=== PATIENT | male | born 1950 | race Caucasian/White ===

== ENCOUNTER → 2018-01-20 | Outpatient (CLI) | payer MEDICARE | END | disposition home or self-care (01) | LOC: CFH 07:49 | PROVIDERS: ATTEND Internal Medicine Cardiovascular Disease | DX: I21.19 ST elevation (STEMI) myocardial infarction involving other coronary artery of inferior wall (principal); I25.9 Chronic ischemic heart disease, unspecified; I10 Essential (primary) hypertension; I49.3 Ventricular premature depolarization | CPT/HCPCS: 78452; 93017; A9502 ==

== ENCOUNTER 2018-02-07 09:48 | Day surgery (SDC) | payer MEDICARE ==
[~2018-02-07] VITALS: Ht 175.3 cm; Wt 111.4 kg
[2018-02-07 10:02] VITALS: BP 128/74
[2018-02-07] MEDS ORDERED: GLUC1TAB21 PO (10:10)
[2018-02-07] MEDS ORDERED: LOSA1TAB22 PO (10:10)
[2018-02-07] MEDS ORDERED: MILK140C PO (10:10)
[2018-02-07] MEDS ORDERED: ASPI-650 PO (10:10)
[2018-02-07] MEDS ORDERED: NIAC500T PO (10:10)
[2018-02-07] MEDS ORDERED: OMEG1CAP34 PO (10:10)
[2018-02-07] MEDS ORDERED: ATOR20TA9 PO (10:10)
[2018-02-07] MEDS ORDERED: MULT-751 PO (10:10)
[2018-02-07] MEDS ORDERED: UBID100C41 PO (10:10)
[2018-02-07 10:34] LABS: BASOPHILS # (AUTO) 0.02 x10^3/uL (0-0.1); BASOPHILS % (AUTO) 0 % (0-1); EOSINOPHILS # (AUTO) 0.12 x10^3/uL (0-0.4); EOSINOPHILS % (AUTO) 3 % (1-7); LYMPHOCYTES # (AUTO) 1.26 x10^3/uL (1-3.4); LYMPHOCYTES % (AUTO) 27 % (22-44); MD NO; MEAN CORPUSCULAR HEMOGLOBIN 29.8 pg (27.5-34.5); MEAN CORPUSCULAR HGB CONC 34.4 g/dL (33.2-36.2); MEAN CORPUSCULAR VOLUME 86.6 fL (81-97); MEAN PLATELET VOLUME 8.3 fL (7.4-10.4); MONOCYTES # (AUTO) 0.37 x10^3/uL (0.2-0.8); MONOCYTES % (AUTO) 8 % (2-9); NEUTROPHILS # (AUTO) 2.94 x10^3/uL (1.8-6.8); NEUTROPHILS % (AUTO) 63 % (42-75); PLATELET COUNT 230 x10^3/uL (130-400); RED BLOOD COUNT 4.92 x10^6/uL (4.38-5.82); RED CELL DISTRIBUTION WIDTH 13.2 % (9.4-14.8)
[2018-02-07 10:46] LABS: ANION GAP 9 mmol/L (5-15); CALCIUM 9.2 mg/dL (8.5-10.1); CHLORIDE 106 mmol/L (98-107)
[2018-02-07 10:47] LABS: CREATININE 0.96 mg/dL (0.7-1.3)
[2018-02-07] MEDS ORDERED: FENTANYL PF 100 MCG/2ML ONE (12:03)
[2018-02-07] MEDS ORDERED: MIDAZOLAM 1 MG/ML, 5ML ONE (12:03)
[2018-02-07] MEDS ORDERED: LIDOCAINE 2%, 2ML ONE (12:04)
[2018-02-07] MEDS ORDERED: TICAGRELOR 90 MG TABLET ONE (12:04)
[2018-02-07] MEDS ORDERED: VERAPAMIL 2.5 MG/ML, 2ML ONE (12:04)
[2018-02-07] MEDS ORDERED: BIVALIRUDIN 250 MG ONE (12:04)
[2018-02-07] MEDS ORDERED: HEPARIN 1,000 UNITS/ML, 10ML ONE (12:04)
== END 2018-02-07 17:00 | disposition home or self-care (01) ==
LOC: CACL 09:48
PROVIDERS: ATTEND Internal Medicine Cardiovascular Disease
DX: I25.10 Atherosclerotic heart disease of native coronary artery without angina pectoris (principal); I10 Essential (primary) hypertension; E78.5 Hyperlipidemia, unspecified; Z79.82 Long term (current) use of aspirin; E66.9 Obesity, unspecified; Z68.30 Body mass index [BMI] 30.0-30.9, adult
CPT/HCPCS: 36415; 80048; 85025; 93458; 93880; 93970; 99156; C1769; C1894; J1644; J2250; J3010; J3490; Q9967; J0583

== ENCOUNTER 2018-03-01 04:18 | Inpatient (IN) | payer MEDICARE ==
[2018-02-28 13:34] LABS: MICROSCOPIC NOT IND
[2018-02-28 13:38] LABS: CULTURE INDICATED? NO
[2018-02-28 13:51] LABS: BASOPHILS # (AUTO) 0.01 x10^3/uL (0-0.1); BASOPHILS % (AUTO) 0 % (0-1); EOSINOPHILS % (AUTO) 2 % (1-7); LYMPHOCYTES # (AUTO) 1.33 x10^3/uL (1-3.4); LYMPHOCYTES % (AUTO) 23 % (22-44); MD NO; MEAN CORPUSCULAR HEMOGLOBIN 29.3 pg (27.5-34.5); MEAN CORPUSCULAR HGB CONC 33.9 g/dL (33.2-36.2); MEAN CORPUSCULAR VOLUME 86.6 fL (81-97); MEAN PLATELET VOLUME 8.5 fL (7.4-10.4); MONOCYTES # (AUTO) 0.54 x10^3/uL (0.2-0.8); MONOCYTES % (AUTO) 9 % (2-9); NEUTROPHILS # (AUTO) 3.76 x10^3/uL (1.8-6.8); NEUTROPHILS % (AUTO) 65 % (42-75); PLATELET COUNT 246 x10^3/uL (130-400); RED BLOOD COUNT 4.96 x10^6/uL (4.38-5.82); RED CELL DISTRIBUTION WIDTH 13.7 % (9.4-14.8)
[2018-02-28 13:59] LABS: INTERNATIONAL NORMALIZED RATIO 0.97 (0.93-1.1); PROTHROMBIN TIME 10.1 Seconds (9.6-11.5)
[2018-02-28 14:03] LABS: ALANINE AMINOTRANSFERASE 23 U/L (12-78); ALBUMIN 3.7 g/dL (3.4-5.0); ANION GAP 8 mmol/L (5-15); CALCIUM 9.2 mg/dL (8.5-10.1); CHLORIDE 104 mmol/L (98-107); CREATININE 1.08 mg/dL (0.7-1.3)
[2018-02-28 14:06] LABS: ALKALINE PHOSPHATASE 69 U/L (45-117); TOTAL PROTEIN 7.7 g/dL (6.4-8.2)
[2018-02-28 14:13] LABS: HEMOGLOBIN A1C 5.8 % (4.2-6.3)
[~2018-03-01] VITALS: Ht 177.8 cm; Wt 119.2 kg
[~2018-03-01 04:18] MED LIST: ASPI-650 PO; ATOR20TA9 PO; GLUC1TAB21 PO; LOSA1TAB22 PO; MILK140C PO; MULT-751 PO; NIAC500T PO; OMEG1CAP34 PO; UBID100C41 PO
[2018-03-01 04:38] VITALS: BP_SYST 124; BP_SYST 130; BP_DIAS 76; BP_DIAS 86
[2018-03-01] MEDS ORDERED: METOPROLOL TARTRATE 25 MG TABLET PO ONE (05:00)
[2018-03-01] MEDS ORDERED: CHLORHEXIDINE 15 ML BOTTLE MM SCH (05:00)
[2018-03-01] MEDS ORDERED: INSULIN LISPRO 100 UNITS/ML, PEN SQ-INSULIN SCH (05:00)
[2018-03-01] MEDS ORDERED: THROMBIN 5,000 UNIT VIAL TP ONE ×2 (06:23→10:54)
[2018-03-01] MEDS ORDERED: HEPARIN 1,000 UNITS/ML, 10ML ONE (06:23)
[2018-03-01] MEDS ORDERED: PAPAVERINE 30 MG/ML, 2ML ONE (06:23)
[2018-03-01] MEDS ORDERED: SUFentanil 50 MCG/ML, 5ML ONE (06:36)
[2018-03-01] MEDS ORDERED: MIDAZOLAM 10MG/2 ML ONE (06:36)
[2018-03-01] MEDS ORDERED: REGULAR INSULIN 62.5 UNITS in SODIUM CHLORIDE 0.9% 249.375 ML IV PRN ×2 (07:30→11:23)
[2018-03-01] MEDS ORDERED: POTASSIUM CHLORIDE 80 MEQ, SODIUM BICARBONATE 8.4% 10 MEQ, MAGNESIUM SULFATE 0.5 GM, LI... IV PRN (07:30)
[2018-03-01] MEDS ORDERED: CEFUROXIME 1.5 GM in SODIUM CHLORIDE 0.9% 50 ML IVPB PRN (07:30)
[2018-03-01] MEDS ORDERED: ALBUMIN HUMAN 5% 500 ML IV PRN (07:30)
[2018-03-01] MEDS ORDERED: VANCOMYCIN 1,700 MG in SODIUM CHLORIDE 0.9% 250 ML IV PRN (07:30)
[2018-03-01] MEDS ORDERED: EPINEPHRINE 2 MG in SODIUM CHLORIDE 0.9% 248 ML IV SCH (07:30)
[2018-03-01] MEDS ORDERED: DEXMEDETOMIDINE 200 MCG in SODIUM CHLORIDE 0.9% 48 ML IV SCH (07:30)
[2018-03-01] MEDS ORDERED: MANNITOL PMX 20% 500 ML IVPB PRN (07:30)
[2018-03-01] MEDS ORDERED: PHENYLEPHRINE 10 MG in SODIUM CHLORIDE 0.9% 249 ML IV PRN ×2 (07:30→11:23)
[2018-03-01] MEDS ORDERED: PAPAVERINE 30 MG/ML, 2ML IV ONE (08:14)
[2018-03-01] MEDS ORDERED: HEPARIN 1,000 UNITS/ML, 10ML IV ONE (08:17)
[2018-03-01] MEDS: SODIUM CHLORIDE FLUSH 10ML SYR IVF SCH ×3 (09:00→21:32)
[2018-03-01] MEDS ORDERED: MUPIROCIN OINT 2%, 22GM TP SCH (09:00)
[2018-03-01] MEDS: DOCUSATE 100 MG CAPSULE PO SCH ×2 (09:00→23:00)
[2018-03-01] MEDS ORDERED: PROTAMINE SULFATE 10 MG/ML, 25ML ONE ×2 (10:12)
[2018-03-01] MEDS ORDERED: ROCURONIUM 10MG/ML,5ML ONE ×2 (10:13)
[2018-03-01] MEDS ORDERED: AMINOCAPROIC ACID 250 MG/ML, 20ML ONE ×2 (10:13)
[2018-03-01] MEDS ORDERED: PROPOFOL 10 MG/ML, 20ML ONE (10:13)
[2018-03-01] MEDS ORDERED: CALCIUM CHLORIDE 10%, 10ML SYR ONE (10:43)
[2018-03-01] MEDS ORDERED: VASOPRESSIN 20 UNIT/ML, 1ML ONE (10:47)
[2018-03-01] MEDS ORDERED: LIDOCAINE 2% 100MG/5ML SYRINGE ONE (11:03)
[2018-03-01] MEDS ORDERED: HEPARIN 1,000 UNITS/ML, 30ML ONE (11:03)
[2018-03-01] MEDS ORDERED: SODIUM BICARBONATE 1 MEQ/ML, 50ML VIAL ONE (11:03)
[2018-03-01] MEDS ORDERED: ALBUMIN HUMAN 25% 50 ML ONE (11:06)
[2018-03-01] MEDS ORDERED: VASOPRESSIN 50 UNIT in SODIUM CHLORIDE 0.9% 247.5 ML IV PRN (11:23)
[2018-03-01] MEDS ORDERED: DOBUTAMINE 250 MG in SODIUM CHLORIDE 0.9% 230 ML IV PRN (11:23)
[2018-03-01] MEDS ORDERED: SODIUM CHLORIDE 0.9% 1,000 ML IV PRN (11:23)
[2018-03-01] MEDS ORDERED: NITROGLYCERIN/D5W PMX 250 ML IV PRN (11:23)
[2018-03-01] MEDS ORDERED: DEXMEDETOMIDINE 200 MCG in SODIUM CHLORIDE 0.9% 48 ML IV PRN (11:23)
[2018-03-01] MEDS ORDERED: OXYcodone IR 5MG TABLET PO PRN (11:30)
[2018-03-01] MEDS ORDERED: ACETAMINOPHEN 325 MG TABLET PO PRN (11:30)
[2018-03-01] MEDS ORDERED: MAGNESIUM SULFATE 1 GM in SODIUM CHLORIDE 0.9% 50 ML IVPB SCH (11:30)
[2018-03-01] MEDS ORDERED: PROCHLORPERAZINE 5 MG/ML, 2ML IVPush PRN (11:30)
[2018-03-01] MEDS ORDERED: ACETAMINOPHEN 650 MG SUPP PR PRN (11:30)
[2018-03-01] MEDS ORDERED: EPINEPHRINE 2 MG in SODIUM CHLORIDE 0.9% 248 ML IV PRN (11:30)
[2018-03-01] MEDS ORDERED: INSULIN REGULAR 100 UNITS/ML, 3ML VIAL IVPush PRN (11:30)
[2018-03-01] MEDS ORDERED: BISACODYL 5 MG EC TABLET PO PRN (11:30)
[2018-03-01] MEDS ORDERED: BISACODYL 10 MG SUPP PR PRN (11:30)
[2018-03-01] MEDS ORDERED: DEXTROSE 4 GM TAB.CHEW PO PRN (11:30)
[2018-03-01] MEDS: KSCALE TO 4.5 IV SCH ×3 (11:30→23:30)
[2018-03-01] MEDS ORDERED: DEXTROSE 50%, 50ML SYRINGE IVPush PRN (11:30)
[2018-03-01] MEDS ORDERED: MIDAZOLAM 1 MG/ML, 5ML IVPush PRN (11:30)
[2018-03-01] MEDS ORDERED: GLUCAGON 1 MG IM PRN (11:30)
[2018-03-01] MEDS ORDERED: LACTATED RINGERS 1,000 ML IV PRN (11:30)
[2018-03-01 11:53] LABS: GLUCOSE BY BLOOD GAS ANALYZER 165 mg/dL (70-110); HEMOGLOBIN BY BLOOD GAS ANALYZ 12.3 g/dL (14.0-18.0); POTASSIUM BY BLOOD GAS ANALYZR 3.4 mmol/L (3.6-5.5)
[2018-03-01] MEDS ORDERED: MIDAZOLAM 1 MG/ML, 2ML ONE (13:43)
[2018-03-01] MEDS ORDERED: POTASSIUM CHLORIDE PMX 100 ML IV ONE ×2 (14:00→18:00)
[2018-03-01] MEDS: morphine SULFATE 10 MG/ML, 1ML IVPush PRN ×3 (14:02→21:28)
[2018-03-01] MEDS: INSULIN LISPRO 100 UNITS/ML, PEN SQ-INSULIN SCH ×2 (16:00→21:00)
[2018-03-01] MEDS: SODIUM BICARB 8.4%, 50ML SYRINGE IV PRN ×2 (16:43→17:25)
[2018-03-01] MEDS ORDERED: SODIUM BICARBONATE 1 MEQ/ML, 50ML VIAL IVPush ONE (17:30)
[2018-03-01] MEDS ORDERED: ALBUMIN HUMAN 5% 500 ML IV ONE (18:00)
[2018-03-01] MEDS: CEFUROXIME 1.5 GM in SODIUM CHLORIDE 0.9% 50 ML IVPB SCH (18:02)
[2018-03-01] MEDS: VANCOMYCIN 1,700 MG in SODIUM CHLORIDE 0.9% 250 ML IVPB SCH (19:39)
[2018-03-01] MEDS: ONDANSETRON 2MG/ML, 2ML IVPush PRN (20:27)
[2018-03-01] MEDS: MUPIROCIN OINT 2%, 22GM NAS SCH (21:29)
[2018-03-01] MEDS: HYDROcodone/APAP 5/325 TABLET PO PRN (23:00)
[2018-03-02] MEDS: HYDROcodone/APAP 5/325 TABLET PO PRN ×4 (04:08→15:53)
[2018-03-02 05:15] LABS: INTERNATIONAL NORMALIZED RATIO 1.09 (0.93-1.1); PROTHROMBIN TIME 11.3 Seconds (9.6-11.5)
[2018-03-02 05:19] LABS: ALBUMIN 3.2 g/dL (3.4-5.0); ANION GAP 7 mmol/L (5-15); CALCIUM 8.3 mg/dL (8.5-10.1); CHLORIDE 111 mmol/L (98-107)
[2018-03-02 05:22] LABS: CREATININE 0.85 mg/dL (0.7-1.3)
[2018-03-02 05:24] LABS: BASOPHILS % (AUTO) 0 % (0-1); EOSINOPHILS % (AUTO) 0 % (1-7); LYMPHOCYTES % (AUTO) 3 % (22-44); MD NO; MEAN CORPUSCULAR HEMOGLOBIN 29.4 pg (27.5-34.5); MEAN CORPUSCULAR VOLUME 86.6 fL (81-97); MONOCYTES % (AUTO) 7 % (2-9); NEUTROPHILS % (AUTO) 90 % (42-75); PLATELET COUNT 140 x10^3/uL (130-400); RED BLOOD COUNT 3.63 x10^6/uL (4.38-5.82); RED CELL DISTRIBUTION WIDTH 13.6 % (9.4-14.8)
[2018-03-02] MEDS: KSCALE TO 4.5 IV SCH (05:30)
[2018-03-02] MEDS: CEFUROXIME 1.5 GM in SODIUM CHLORIDE 0.9% 50 ML IVPB SCH (06:27)
[2018-03-02] MEDS ORDERED: PROPOFOL 100 ML IV PRN (07:00)
[2018-03-02] MEDS: INSULIN LISPRO 100 UNITS/ML, PEN SQ-INSULIN SCH ×4 (07:00→20:39)
[2018-03-02] MEDS: VANCOMYCIN 1,700 MG in SODIUM CHLORIDE 0.9% 250 ML IVPB SCH (07:15)
[2018-03-02] MEDS: ASPIRIN 325 MG TABLET EC PO SCH (08:17)
[2018-03-02] MEDS: DOCUSATE 100 MG CAPSULE PO SCH ×2 (08:17→20:28)
[2018-03-02] MEDS: SODIUM CHLORIDE FLUSH 10ML SYR IVF SCH ×2 (08:18→20:29)
[2018-03-02] MEDS: METOPROLOL TARTRATE 25 MG TABLET PO/NG SCH ×2 (08:18→20:28)
[2018-03-02] MEDS ORDERED: ASPIRIN 81 MG TABLET EC PO SCH (09:00)
[2018-03-02] MEDS ORDERED: FUROSEMIDE 20 MG/2 ML IV SCH (09:00)
[2018-03-02] MEDS: MUPIROCIN OINT 2%, 22GM NAS SCH ×2 (10:25→20:29)
[2018-03-02] MEDS: CHLORHEXIDINE 15 ML BOTTLE MM SCH ×2 (12:02→23:47)
[2018-03-02] MEDS: STERILE WATER IVPB SCH (12:02)
[2018-03-02] MEDS: MAGNESIUM SULFATE IVPB SCH (12:02)
[2018-03-02 15:00] VITALS: BP 118/66
[2018-03-02 18:46] VITALS: BP 129/77
[2018-03-02] MEDS: ATORVASTATIN 20 MG TABLET PO SCH (20:28)
[2018-03-03] MEDS: HYDROcodone/APAP 5/325 TABLET PO PRN ×4 (00:11→21:37)
[2018-03-03 01:32] VITALS: BP 118/74
[2018-03-03] MEDS: ONDANSETRON 2MG/ML, 2ML IVPush PRN ×2 (01:43→13:32)
[2018-03-03 05:33] LABS: INTERNATIONAL NORMALIZED RATIO 1.03 (0.93-1.1); PROTHROMBIN TIME 10.7 Seconds (9.6-11.5)
[2018-03-03 05:40] LABS: ANION GAP 5 mmol/L (5-15); CALCIUM 8.4 mg/dL (8.5-10.1); CHLORIDE 103 mmol/L (98-107); CREATININE 0.78 mg/dL (0.7-1.3)
[2018-03-03 05:50] LABS: BASOPHILS # (AUTO) 0.01 x10^3/uL (0-0.1); BASOPHILS % (AUTO) 0 % (0-1); EOSINOPHILS % (AUTO) 0 % (1-7); LYMPHOCYTES # (AUTO) 0.84 x10^3/uL (1-3.4); LYMPHOCYTES % (AUTO) 6 % (22-44); MD NO; MEAN CORPUSCULAR HEMOGLOBIN 29.8 pg (27.5-34.5); MEAN CORPUSCULAR HGB CONC 34.1 g/dL (33.2-36.2); MEAN CORPUSCULAR VOLUME 87.6 fL (81-97); MEAN PLATELET VOLUME 9.2 fL (7.4-10.4); MONOCYTES # (AUTO) 1.06 x10^3/uL (0.2-0.8); MONOCYTES % (AUTO) 7 % (2-9); NEUTROPHILS # (AUTO) 13.17 x10^3/uL (1.8-6.8); NEUTROPHILS % (AUTO) 87 % (42-75); PLATELET COUNT 144 x10^3/uL (130-400); RED BLOOD COUNT 3.61 x10^6/uL (4.38-5.82); RED CELL DISTRIBUTION WIDTH 13.7 % (9.4-14.8)
[2018-03-03] MEDS: INSULIN LISPRO 100 UNITS/ML, PEN SQ-INSULIN SCH ×4 (07:00→21:00)
[2018-03-03] MEDS: ASPIRIN 325 MG TABLET EC PO SCH (08:35)
[2018-03-03] MEDS: DOCUSATE 100 MG CAPSULE PO SCH ×2 (08:35→21:36)
[2018-03-03] MEDS: MUPIROCIN OINT 2%, 22GM NAS SCH ×2 (08:38→21:35)
[2018-03-03 08:39] VITALS: BP 150/73
[2018-03-03] MEDS: ENOXAPARIN 40 MG/0.4 ML SQ SCH (08:39)
[2018-03-03] MEDS: SODIUM CHLORIDE FLUSH 10ML SYR IVF SCH ×2 (09:00→21:00)
[2018-03-03] MEDS: METOPROLOL TARTRATE 25 MG TABLET PO/NG SCH ×2 (09:03→21:36)
[2018-03-03] MEDS: FUROSEMIDE 20 MG/2 ML IV SCH ×2 (09:04→17:56)
[2018-03-03] MEDS: GUAIFENESIN 200 MG TABLET PO SCH ×3 (12:09→21:36)
[2018-03-03] MEDS: CHLORHEXIDINE 15 ML BOTTLE MM SCH ×2 (12:10→23:30)
[2018-03-03] MEDS: STERILE WATER IVPB SCH (12:13)
[2018-03-03] MEDS: MAGNESIUM SULFATE IVPB SCH (12:13)
[2018-03-03 12:55] VITALS: BP 111/76
[2018-03-03] MEDS: POTASSIUM CHLORIDE 10 MEQ TABLET.ER PO SCH (17:56)
[2018-03-03 19:29] VITALS: BP 122/75
[2018-03-03 21:30] VITALS: BP 114/71
[2018-03-03] MEDS: ATORVASTATIN 20 MG TABLET PO SCH (21:36)
[2018-03-04 01:27] VITALS: BP 103/61
[2018-03-04 04:59] LABS: BASOPHILS # (AUTO) 0.03 x10^3/uL (0-0.1); BASOPHILS % (AUTO) 0 % (0-1); EOSINOPHILS # (AUTO) 0.06 x10^3/uL (0-0.4); EOSINOPHILS % (AUTO) 1 % (1-7); LYMPHOCYTES # (AUTO) 0.98 x10^3/uL (1-3.4); LYMPHOCYTES % (AUTO) 10 % (22-44); MD NO; MEAN CORPUSCULAR HEMOGLOBIN 29.7 pg (27.5-34.5); MEAN CORPUSCULAR VOLUME 87.4 fL (81-97); MEAN PLATELET VOLUME 8.9 fL (7.4-10.4); MONOCYTES % (AUTO) 7 % (2-9); NEUTROPHILS # (AUTO) 8.53 x10^3/uL (1.8-6.8); NEUTROPHILS % (AUTO) 83 % (42-75); PLATELET COUNT 138 x10^3/uL (130-400); RED CELL DISTRIBUTION WIDTH 13.4 % (9.4-14.8)
[2018-03-04 05:06] LABS: ANION GAP 5 mmol/L (5-15); CALCIUM 8.3 mg/dL (8.5-10.1); CHLORIDE 103 mmol/L (98-107); CREATININE 0.92 mg/dL (0.7-1.3)
[2018-03-04] MEDS: GUAIFENESIN 200 MG TABLET PO SCH ×4 (06:05→20:03)
[2018-03-04] MEDS: HYDROcodone/APAP 5/325 TABLET PO PRN ×3 (06:18→21:21)
[2018-03-04] MEDS ORDERED: POTASSIUM CHLORIDE 20 MEQ TAB.ER.PRT PO ONE (07:00)
[2018-03-04] MEDS ORDERED: AMIODARONE 900 MG in DEXTROSE 5% 482 ML IV PRN (07:00)
[2018-03-04] MEDS: INSULIN LISPRO 100 UNITS/ML, PEN SQ-INSULIN SCH ×4 (07:00→20:01)
[2018-03-04] MEDS ORDERED: FILTER 0.22 MICRON IV PRN (07:00)
[2018-03-04] MEDS ORDERED: AMIODARONE 150 MG in DEXTROSE 5% 100 ML IV ONE (07:00)
[2018-03-04 07:43] VITALS: BP 111/70
[2018-03-04] MEDS: POTASSIUM CHLORIDE 10 MEQ TABLET.ER PO SCH ×2 (08:10→17:14)
[2018-03-04] MEDS: CLOPIDOGREL 75 MG TABLET PO SCH (08:10)
[2018-03-04] MEDS: METOPROLOL TARTRATE 25 MG TABLET PO/NG SCH ×2 (08:13→20:03)
[2018-03-04] MEDS: ASPIRIN 325 MG TABLET EC PO SCH (08:13)
[2018-03-04] MEDS: DOCUSATE 100 MG CAPSULE PO SCH ×2 (08:13→20:03)
[2018-03-04] MEDS: ENOXAPARIN 40 MG/0.4 ML SQ SCH (08:17)
[2018-03-04] MEDS: FUROSEMIDE 20 MG/2 ML IV SCH ×2 (08:25→17:17)
[2018-03-04] MEDS: MUPIROCIN OINT 2%, 22GM NAS SCH ×2 (08:25→20:03)
[2018-03-04] MEDS: SODIUM CHLORIDE FLUSH 10ML SYR IVF SCH ×2 (08:26→21:00)
[2018-03-04 14:40] VITALS: BP 118/70
[2018-03-04 16:56] VITALS: BP 115/74
[2018-03-04 19:53] VITALS: BP 120/74
[2018-03-04] MEDS: ATORVASTATIN 20 MG TABLET PO SCH (20:03)
[2018-03-05 00:53] VITALS: BP 124/70
[2018-03-05 05:05] LABS: ANION GAP 5 mmol/L (5-15); CALCIUM 8.1 mg/dL (8.5-10.1); CHLORIDE 104 mmol/L (98-107); CREATININE 0.86 mg/dL (0.7-1.3)
[2018-03-05 05:10] LABS: BASOPHILS # (AUTO) 0.03 x10^3/uL (0-0.1); BASOPHILS % (AUTO) 0 % (0-1); EOSINOPHILS # (AUTO) 0.26 x10^3/uL (0-0.4); EOSINOPHILS % (AUTO) 3 % (1-7); LYMPHOCYTES # (AUTO) 0.88 x10^3/uL (1-3.4); LYMPHOCYTES % (AUTO) 11 % (22-44); MD NO; MEAN CORPUSCULAR HEMOGLOBIN 29.4 pg (27.5-34.5); MEAN CORPUSCULAR HGB CONC 33.5 g/dL (33.2-36.2); MEAN PLATELET VOLUME 8.9 fL (7.4-10.4); MONOCYTES # (AUTO) 0.57 x10^3/uL (0.2-0.8); MONOCYTES % (AUTO) 7 % (2-9); NEUTROPHILS # (AUTO) 6.01 x10^3/uL (1.8-6.8); NEUTROPHILS % (AUTO) 78 % (42-75); PLATELET COUNT 172 x10^3/uL (130-400); RED BLOOD COUNT 3.53 x10^6/uL (4.38-5.82); RED CELL DISTRIBUTION WIDTH 13.5 % (9.4-14.8)
[2018-03-05] MEDS: GUAIFENESIN 200 MG TABLET PO SCH ×4 (05:54→19:52)
[2018-03-05 06:52] VITALS: BP 116/66
[2018-03-05] MEDS ORDERED: POTASSIUM CHLORIDE 20 MEQ TAB.ER.PRT PO ONE (07:00)
[2018-03-05] MEDS: INSULIN LISPRO 100 UNITS/ML, PEN SQ-INSULIN SCH ×2 (07:00→12:18)
[2018-03-05] MEDS: POTASSIUM CHLORIDE 10 MEQ TABLET.ER PO SCH ×2 (08:00→16:29)
[2018-03-05] MEDS: CLOPIDOGREL 75 MG TABLET PO SCH (08:35)
[2018-03-05] MEDS: METOPROLOL TARTRATE 25 MG TABLET PO/NG SCH ×2 (08:35→19:52)
[2018-03-05] MEDS: DOCUSATE 100 MG CAPSULE PO SCH ×2 (08:35→19:52)
[2018-03-05] MEDS: AMIODARONE 200 MG TABLET PO SCH ×2 (08:35→19:53)
[2018-03-05] MEDS: ASPIRIN 325 MG TABLET EC PO SCH (08:35)
[2018-03-05] MEDS: ENOXAPARIN 40 MG/0.4 ML SQ SCH (08:36)
[2018-03-05] MEDS: FUROSEMIDE 20 MG/2 ML IV SCH ×2 (11:39→16:29)
[2018-03-05] MEDS: MUPIROCIN OINT 2%, 22GM NAS SCH ×2 (11:40→19:53)
[2018-03-05] MEDS: SODIUM CHLORIDE FLUSH 10ML SYR IVF SCH ×2 (11:40→19:53)
[2018-03-05 13:03] VITALS: BP 117/69
[2018-03-05] MEDS: HYDROcodone/APAP 5/325 TABLET PO PRN (14:46)
[2018-03-05 18:39] VITALS: BP 111/69
[2018-03-05 19:47] VITALS: BP 123/76
[2018-03-05] MEDS: ATORVASTATIN 20 MG TABLET PO SCH (19:52)
[2018-03-06] MEDS: HYDROcodone/APAP 5/325 TABLET PO PRN ×4 (00:32→20:08)
[2018-03-06] MEDS ORDERED: FILTER 0.22 MICRON IV PRN (01:30)
[2018-03-06] MEDS ORDERED: AMIODARONE 900 MG in DEXTROSE 5% 482 ML IV PRN (01:30)
[2018-03-06] MEDS ORDERED: AMIODARONE 150 MG in DEXTROSE 5% 100 ML IV ONE (01:30)
[2018-03-06 02:38] VITALS: BP 123/67
[2018-03-06 05:26] LABS: BASOPHILS # (AUTO) 0.05 x10^3/uL (0-0.1); BASOPHILS % (AUTO) 1 % (0-1); EOSINOPHILS # (AUTO) 0.26 x10^3/uL (0-0.4); EOSINOPHILS % (AUTO) 4 % (1-7); LYMPHOCYTES # (AUTO) 1.19 x10^3/uL (1-3.4); LYMPHOCYTES % (AUTO) 19 % (22-44); MD NO; MEAN CORPUSCULAR HEMOGLOBIN 29.3 pg (27.5-34.5); MEAN CORPUSCULAR HGB CONC 33.6 g/dL (33.2-36.2); MEAN PLATELET VOLUME 7.8 fL (7.4-10.4); MONOCYTES # (AUTO) 0.58 x10^3/uL (0.2-0.8); MONOCYTES % (AUTO) 9 % (2-9); NEUTROPHILS % (AUTO) 66 % (42-75); PLATELET COUNT 236 x10^3/uL (130-400); RED BLOOD COUNT 3.53 x10^6/uL (4.38-5.82); RED CELL DISTRIBUTION WIDTH 13.5 % (9.4-14.8)
[2018-03-06 05:30] LABS: ANION GAP 7 mmol/L (5-15); CALCIUM 8.5 mg/dL (8.5-10.1); CHLORIDE 103 mmol/L (98-107)
[2018-03-06 05:32] LABS: CREATININE 0.89 mg/dL (0.7-1.3)
[2018-03-06] MEDS: GUAIFENESIN 200 MG TABLET PO SCH ×4 (06:21→20:08)
[2018-03-06] MEDS ORDERED: POTASSIUM CHLORIDE 20 MEQ TAB.ER.PRT PO ONE (07:30)
[2018-03-06] MEDS: ASPIRIN 325 MG TABLET EC PO SCH (07:59)
[2018-03-06] MEDS: AMIODARONE 200 MG TABLET PO SCH ×2 (07:59→20:07)
[2018-03-06 08:00] VITALS: BP 131/80
[2018-03-06] MEDS: METOPROLOL TARTRATE 25 MG TABLET PO/NG SCH ×2 (08:00→20:07)
[2018-03-06] MEDS: DOCUSATE 100 MG CAPSULE PO SCH ×2 (08:00→20:08)
[2018-03-06] MEDS: CLOPIDOGREL 75 MG TABLET PO SCH (08:00)
[2018-03-06] MEDS: POTASSIUM CHLORIDE 10 MEQ TABLET.ER PO SCH ×2 (08:00→18:08)
[2018-03-06] MEDS: FUROSEMIDE 20 MG/2 ML IV SCH ×2 (08:00→18:08)
[2018-03-06] MEDS: MUPIROCIN OINT 2%, 22GM NAS SCH (08:00)
[2018-03-06] MEDS: ENOXAPARIN 40 MG/0.4 ML SQ SCH (08:00)
[2018-03-06] MEDS: SODIUM CHLORIDE FLUSH 10ML SYR IVF SCH ×2 (08:01→20:08)
[2018-03-06 14:00] VITALS: BP 118/64
[2018-03-06 19:38] VITALS: BP 125/70
[2018-03-06] MEDS: ATORVASTATIN 20 MG TABLET PO SCH (20:07)
[2018-03-07 02:02] VITALS: BP 117/71
[2018-03-07 05:11] LABS: ANION GAP 7 mmol/L (5-15); CALCIUM 8.6 mg/dL (8.5-10.1); CHLORIDE 103 mmol/L (98-107); CREATININE 0.94 mg/dL (0.7-1.3)
[2018-03-07] MEDS: GUAIFENESIN 200 MG TABLET PO SCH ×4 (05:13→21:21)
[2018-03-07 07:58] VITALS: BP 126/81
[2018-03-07] MEDS: DOCUSATE 100 MG CAPSULE PO SCH ×2 (09:00→21:24)
[2018-03-07] MEDS: AMIODARONE 200 MG TABLET PO SCH ×2 (10:30→21:24)
[2018-03-07] MEDS: METOPROLOL TARTRATE 25 MG TABLET PO/NG SCH ×2 (10:30→21:23)
[2018-03-07] MEDS: CLOPIDOGREL 75 MG TABLET PO SCH (10:30)
[2018-03-07] MEDS: POTASSIUM CHLORIDE 10 MEQ TABLET.ER PO SCH (10:30)
[2018-03-07] MEDS: ASPIRIN 325 MG TABLET EC PO SCH (10:30)
[2018-03-07] MEDS: ENOXAPARIN 40 MG/0.4 ML SQ SCH (10:30)
[2018-03-07] MEDS: FUROSEMIDE 20 MG TABLET PO SCH (10:31)
[2018-03-07 12:45] VITALS: BP 114/71
[2018-03-07] MEDS: SODIUM CHLORIDE FLUSH 10ML SYR IVF SCH ×2 (16:52→21:24)
[2018-03-07 21:17] VITALS: BP 108/69
[2018-03-07] MEDS: HYDROcodone/APAP 5/325 TABLET PO PRN (21:21)
[2018-03-07] MEDS: ATORVASTATIN 20 MG TABLET PO SCH (21:23)
[2018-03-08 00:59] VITALS: BP 119/72
[2018-03-08 05:32] LABS: CHLORIDE 104 mmol/L (98-107)
[2018-03-08] MEDS: GUAIFENESIN 200 MG TABLET PO SCH ×3 (05:40→15:50)
[2018-03-08 05:46] LABS: ANION GAP 7 mmol/L (5-15); CALCIUM 9.1 mg/dL (8.5-10.1)
[2018-03-08 07:48] VITALS: BP 114/74
[2018-03-08] MEDS: ENOXAPARIN 40 MG/0.4 ML SQ SCH (07:53)
[2018-03-08] MEDS: CLOPIDOGREL 75 MG TABLET PO SCH (07:53)
[2018-03-08] MEDS: DOCUSATE 100 MG CAPSULE PO SCH (07:54)
[2018-03-08] MEDS: FUROSEMIDE 20 MG TABLET PO SCH (07:54)
[2018-03-08] MEDS: METOPROLOL TARTRATE 25 MG TABLET PO/NG SCH (07:54)
[2018-03-08] MEDS: ASPIRIN 325 MG TABLET EC PO SCH (07:54)
[2018-03-08] MEDS: AMIODARONE 200 MG TABLET PO SCH (07:54)
[2018-03-08] MEDS: SODIUM CHLORIDE FLUSH 10ML SYR IVF SCH (07:55)
[2018-03-08] MEDS: POTASSIUM CHLORIDE 10 MEQ TABLET.ER PO SCH (07:57)
[2018-03-08] MEDS ORDERED: POTA10TA5 PO (08:49)
[2018-03-08] MEDS ORDERED: HYDR-3240 PO (08:49)
[2018-03-08] MEDS ORDERED: FURO20TA3 PO (08:49)
[2018-03-08] MEDS ORDERED: METO25TA35 PO/NG (08:49)
[2018-03-08] MEDS ORDERED: LOSA25TA5 PO (08:49)
[2018-03-08] MEDS ORDERED: CLOP75TA PO (08:49)
[2018-03-08] MEDS ORDERED: ASPI-621 PO (08:49)
[2018-03-08 13:05] VITALS: BP 104/61
[2018-03-08] MEDS: HYDROcodone/APAP 5/325 TABLET PO PRN (15:50)
== END 2018-03-08 18:58 | DRG 235 ==
LOC: 5SO 04:18 → CSU 08:37 → 5SO 03-02 14:59
PROVIDERS: ADMIT Thoracic Surgery (Cardiothoracic Vascular Surgery); ATTEND Thoracic Surgery (Cardiothoracic Vascular Surgery)
PROC: 021109W Bypass Coronary Artery, Two Arteries from Aorta with Autologous Venous Tissue, Open Approach (ICD-10-PCS; 2018-03-01)
PROC: 06BP4ZZ Excision of Right Saphenous Vein, Percutaneous Endoscopic Approach (ICD-10-PCS; 2018-03-01)
PROC: B246ZZ4 Ultrasonography of Right and Left Heart, Transesophageal (ICD-10-PCS; 2018-03-01)
PROC: 5A1221Z Performance of Cardiac Output, Continuous (ICD-10-PCS; 2018-03-01)
PROC: 02100Z9 Bypass Coronary Artery, One Artery from Left Internal Mammary, Open Approach (ICD-10-PCS; principal; 2018-03-01 07:30)
DX: I25.10 Atherosclerotic heart disease of native coronary artery without angina pectoris (principal); I50.43 Acute on chronic combined systolic (congestive) and diastolic (congestive) heart failure; J98.11 Atelectasis; R73.03 Prediabetes; E66.9 Obesity, unspecified; E78.5 Hyperlipidemia, unspecified; I11.0 Hypertensive heart disease with heart failure; I48.91 Unspecified atrial fibrillation; Z68.37 Body mass index [BMI] 37.0-37.9, adult; Z82.49 Family history of ischemic heart disease and other diseases of the circulatory system
CPT/HCPCS: 36415; 36600; 71045; 71046; 80048; 80053; 81003; 82040; 82330; 82800; 82803; 82810; 82947; 82962; 83036; 83735; 84132; 84295; 85014; 85018; 85025; 85049; 85347; 85610; 85730; 86850; 86900; 86923; 87081; 93005; 93312; 93321; 93325; 94002; 94150; J0697; J1644; J1650; J1815; J2250; J2405; J2704; J2720; J3370; J3475; J3480; P9045; P9047; C1751; C1760; C1762; J0282; J1940; J2270; J2440; J7050; J7060; J7120

== ENCOUNTER → 2018-09-12 | Outpatient (CLI) | payer MEDICARE ==
[~2018-09-12] MED LIST changes: +ASPI81TA45 PO; +ATOR20TA37 PO; -ATOR20TA9 PO; +CLOP75TA PO; +FURO20TA3 PO; +HYDR-3240 PO; +LOSA25TA25 PO; +METO25TA35 PO/NG; +OMNIPAQUE 350 MG/ML, 100ML BOTTLE ONE; +POTA10TA5 PO
== END | disposition home or self-care (01) ==
LOC: CFH 09:03
PROVIDERS: ATTEND Internal Medicine
DX: I26.99 Other pulmonary embolism without acute cor pulmonale (principal)
CPT/HCPCS: 71275; Q9967